=== PATIENT | female | born 1985 | race Caucasian/White ===

== ENCOUNTER 2024-02-23 19:51 | Emergency (ER) | payer MEDICAID, OTHER ==
[2024-02-23 21:39] VITALS: BP 138/88; PULSE 111
[2024-02-23 21:57] LABS: APPEARANCE,URINE CLEAR (CLEAR); BILIRUBIN,URINE NEGATIVE (NEGATIVE); COLOR,URINE YELLOW (YELLOW); GLUCOSE,URINE NEGATIVE (NEGATIVE); KETONES,URINE NEGATIVE (NEGATIVE); LEUKOCYTE ESTERASE,URINE NEGATIVE (NEGATIVE); NITRITE,URINE NEGATIVE (NEGATIVE); OCCULT BLOOD,URINE NEGATIVE (NEGATIVE); PH,URINE 5.5 (5.0-8.0); PROTEIN,URINE NEGATIVE (NEGATIVE); UROBILINOGEN,URINE 0.2 EU/dL (0.2-1.0)
[2024-02-23 22:03] LABS: BACTERIA,URINE NOT SEEN; EPITHELIAL CELLS,URINE MODERATE; RBC,URINE NOT SEEN (0-5); WBC,URINE NOT SEEN (0-5)
[2024-02-23] MEDS: Ketorolac 30 MG/ML SDV IM ONE (22:18)
[2024-02-23] MEDS: Ondansetron 4 MG Tab.DIS PO ONE (22:18)
[2024-02-23 22:20] LABS: STREP A BY PCR NOT DETECTED (NOT DETECT)
[2024-02-23 22:33] LABS: CORONAVIRUS COVID-19 NAA NEGATIVE (NEGATIVE); INFLUENZA A NAA NEGATIVE (NEGATIVE); INFLUENZA B NAA NEGATIVE (NEGATIVE); RESPIRATORY SYNCYTIAL VIR NAA NEGATIVE (NEGATIVE)
== END 2024-02-23 23:15 | disposition home or self-care (01) ==
LOC: JP.ED 19:51
DX: R50.9 Fever, unspecified (principal); R51.9 Headache, unspecified; R11.0 Nausea; R05.9 Cough, unspecified; Z79.899 Other long term (current) drug therapy; Z88.0 Allergy status to penicillin
CPT/HCPCS: 0241U; 81001; 87651; 96372; 99283; 99284; J1885; Q0162

== ENCOUNTER 2024-08-19 02:24 | Emergency (ER) | payer OTHER ==
[2024-08-19] MEDS: Ketorolac 30 MG/ML SDV IM ONE (03:16)
[2024-08-19] MEDS: Ondansetron 4 MG Tab.DIS PO ONE (03:16)
[2024-08-19] MEDS ORDERED: Ondansetron 4 MG Tab.DIS ONE (03:18)
[2024-08-19] MEDS ORDERED: Ketorolac 30 MG/ML SDV ONE (03:18)
[2024-08-19 04:32] VITALS: BP 168/93; PULSE 68
[2024-08-19] MEDS: Bupivacaine 0.25% 10 ML SDV INJECT ONE (04:52)
== END 2024-08-19 04:59 | disposition home or self-care (01) ==
LOC: JP.ED 02:24
DX: M79.2 Neuralgia and neuritis, unspecified (principal); Z88.0 Allergy status to penicillin; Z79.899 Other long term (current) drug therapy
CPT/HCPCS: 72040; 73030; 96372; 99283; J1885; J3490; Q0162